=== PATIENT | male | born 1970 | race Caucasian/White ===

== ENCOUNTER 2020-08-02 09:25 | Day surgery (SDC) | payer OTHER ==
[~2020-08-02] VITALS: Ht 177.8 cm; Wt 89.5 kg
--- NOTE | ~2020-08-02 | OP ---
PATIENT NAME: SANJUANA CONTRERAS MEDICAL RECORD: [id number] :68 LOCATION:. ADMISSION DATE: SURGEON: KAYLI BATISTA MD DATE OF OPERATION: 08/02/2020 PREOPERATIVE DIAGNOSES: 1. End-stage renal disease. 2. Dislodged hemodialysis catheter. 3. Hypertension. 4. Diabetes mellitus. 5. Coronary artery disease. 6. Chronic obstructive pulmonary disease. POSTOPERATIVE DIAGNOSES: 1. End-stage renal disease. 2. Dislodged hemodialysis catheter. 3. Hypertension. 4. Diabetes mellitus. 5. Coronary artery disease. 6. Chronic obstructive pulmonary disease. PROCEDURE: 1. A 27 cm left IJ HemoSplit catheter placement. 2. Fluoroscopic interpretation. SURGEON: Kayli Batista MD DESCRIPTION OF PROCEDURE: The patient's left chest was prepped and draped in sterile fashion. Using ultrasound guidance, a needle was used to cannulate the left internal jugular vein. We advanced the guidewire with some tension. 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 We passed an 0.035 Glidewire pass this and into the right ventricle. We then made an incision on the patient's left chest and tunneled a 27 cm HemoSplit catheter between this and the wire exit site. The multiple dilators were placed over the wires followed by the dilator trocar device. The wire and dilator were removed and the catheter tip was advanced through the trocar. The trocar was then removed. The catheter tips were noted to be in good position in the distal superior vena cava. The catheter aspirated nonpulsatile dark blood and flushed easily in all 3 ports. This was sutured into place with 3-0 nylons and the skin incisions were closed with subcutaneous 5-0 Monocryl. COMPLICATIONS: None. CONDITION: Stable. ANESTHESIA: General endotracheal. BLOOD LOSS: 150 mL. TRANSINT:[id number] Voice Confirmation ID: [id number] DOCUMENT ID: [id number] OPERATIVE REPORT [id number] SANJUANA CONTRERAS CHRISTIAN MD CC: [id number] DICTATION DATE: 08/02/[address] CAR MECHANIC: 08/02/20 1408 [facility] [address] [place] [address]
[~2020-08-02 09:25] MED LIST: ALDACTONE50 MG PO; ARTIFICIAL TEARS; CATAPRES0.2 MG PO; HUMULIN R100 UNIT/1 SC; HYDRALAZINE HCL50 MG PO; LASIX80 MG PO; NEURONTIN800 MG PO; NORVASC10 MG PO; NOVOLIN 70/30 110 ML SC; NOVOLIN 70/30 110 ML SQ; OMEPRAZOLE40 MG PO; SODIUM BICARBO650 MG PO; TOPAMAX50 MG PO
[2020-08-02 10:26] VITALS: Ht 177.8 cm; Wt 89.5 kg
[2020-08-02 10:53] LABS: ANION GAP 22.5 mmol/L (8-16); CALCIUM 7.9 mg/dL (8.5-10.1); CARBON DIOXIDE 18.7 mmol/L (21.0-32.0); CREATININE - SERUM 12.3 mg/dL (0.6-1.3); POTASSIUM - SERUM 4.2 mmol/L (3.5-5.1)
[2020-08-02 10:59] LABS: ALBUMIN 3.7 g/dL (3.4-5.0); BILIRUBIN - TOTAL 0.48 mg/dL (0.2-1.3); PROTEIN - SERUM 6.8 g/dL (6.4-8.2)
[2020-08-02 11:03] LABS: BASOPHILS 0.1 % (0-2); HEMATOCRIT 29.7 % (42.0-54.0); HEMOGLOBIN 9.9 g/dL (13.5-17.5); IMMATURE GRANULOCYTES 0.1 % (0-5); LYMPHOCYTE ABS# 0.85 10x3/uL (1.32-3.57); LYMPHOCYTES 11.2 % (15-50); MCH 32.4 pg (26.0-34.0); MCHC 33.3 g/dL (31.0-37.0); MCV 97.1 fL (80.0-100.0); MEAN PLATELET VOLUME 10.4 fL (7.4-10.4); MONOCYTES 18.7 % (2-11); NEUTROPHIL ABS# 5.13 10x3/uL (1.78-5.38); NEUTROPHILS 67.9 % (40-80); PLATELET COUNT 174 10x3/uL (130-400); RBC 3.06 10x6/uL (4.20-6.10); RDW 13.9 % (11.5-14.5); WBC 7.6 10x3/uL (4.8-10.8)
[2020-08-02 11:10] LABS: INR 1.16 (0.85-1.17); PROTIME 13.7 SECONDS (11.6-15.0)
[2020-08-02 11:25] VITALS: BP 177/98
[2020-08-02] MEDS ORDERED: HYDROCODON-ACE1 EAC7 PO (12:24)
--- NOTE | 2020-08-02 13:38 | NUR ---
1255 PT ARRIVED FROM OR WITH 2 LAW ENFORCERS. ROLANDO SPLIT CATH TO LEFT UPPER CHEST. DRESSING CLEAN AND DRY. PT FIGGITY AND EYES CLOSED. IV IN RIGHT HAND WITHOUT SWELLING. 1330 SPOKE WITH LUIS WITH DR MENDOSA AND SHE STATED IT WAS OK FOR PT TO RETURN TO [facility]. 1335 PT DRANK SOME APPLE JUICE AND JELLO
--- NOTE | 2020-08-02 14:24 | NUR ---
1400 IV REMOVED AND PRESSURE HELD TO RIGHT HAND. 1415 BS PER FINGER STICK 142. WAITING FOR TRANSPORTATION TO INTERMEDIATE.
== END 2020-08-02 15:25 ==
LOC: D.ER 09:25 → D.OPS 09:25 → EDSTATUS 10:00 → D.OPS 15:25
PROVIDERS: Family Medicine; ATTEND Internal Medicine
DX: N18.6 End stage renal disease (principal); T82.42XA Displacement of vascular dialysis catheter, initial encounter; I10 Essential (primary) hypertension; E11.9 Type 2 diabetes mellitus without complications; I25.10 Atherosclerotic heart disease of native coronary artery without angina pectoris; J44.9 Chronic obstructive pulmonary disease, unspecified

== ENCOUNTER 2020-08-05 11:42 | Inpatient (IN) | payer MEDICAID ==
[~2020-08-05] VITALS: Ht 177.8 cm; Wt 118.2 kg
[~2020-08-05 11:42] MED LIST changes: +HYDROCODON-ACE1 EAC7 PO
[2020-08-05 11:59] VITALS: BP 168/96
--- NOTE | 2020-08-05 12:10 | NUR ---
DISTRIBUTION COLLECTION OPERATOR IN ROOM
[2020-08-05 12:25] LABS: BASOPHILS 0.2 % (0-2); EOSINOPHILS 1.5 % (0-7); HEMATOCRIT 26.5 % (42.0-54.0); HEMOGLOBIN 8.9 g/dL (13.5-17.5); IMMATURE GRANULOCYTES 0.2 % (0-5); LYMPHOCYTE ABS# 0.73 10x3/uL (1.32-3.57); LYMPHOCYTES 7.3 % (15-50); MCHC 33.6 g/dL (31.0-37.0); MCV 98.1 fL (80.0-100.0); MEAN PLATELET VOLUME 10.5 fL (7.4-10.4); MONOCYTES 14.6 % (2-11); NEUTROPHIL ABS# 7.57 10x3/uL (1.78-5.38); NEUTROPHILS 76.2 % (40-80); PLATELET COUNT 163 10x3/uL (130-400); RDW 13.9 % (11.5-14.5); WBC 9.9 10x3/uL (4.8-10.8)
[2020-08-05 13:00] VITALS: BP 169/99
[2020-08-05 13:00] LABS: ALBUMIN 3.4 g/dL (3.4-5.0); ALKALINE PHOSPHATASE 95 U/L (30-120); ALT (SGPT) 12 U/L (10-68); BILIRUBIN - TOTAL 0.52 mg/dL (0.2-1.3); CALC OSMOLALITY 307 mosm/kg (275-300); CALCIUM 8.4 mg/dL (8.5-10.1); CARBON DIOXIDE 13.3 mmol/L (21.0-32.0); CHLORIDE - SERUM 102 mmol/L (98-107); CKMB 2.7 U/L (0.0-3.6); CREATINE KINASE 310 UL (21-232); CREATININE - SERUM 15.4 mg/dL (0.6-1.3); GLUCOSE 98 mg/dL (74-106); POTASSIUM - SERUM 5.6 mmol/L (3.5-5.1); PRO BNP 17759 pg/mL (0-125); PROTEIN - SERUM 6.9 g/dL (6.4-8.2); SODIUM 139 mmol/L (136-145); TROPONIN-I 0.054 ng/mL (0.000-0.060); UREA NITROGEN 96 mg/dL (7-18); eGFR NON AFRICAN AMERICAN 4 mL/min (90-120)
[2020-08-05 13:16] LABS: APTT 36.4 SECONDS (22.8-39.4)
[2020-08-05 13:17] LABS: INR 1.22 (0.85-1.17); PROTIME 14.3 SECONDS (11.6-15.0)
--- NOTE | 2020-08-05 13:48 | NUR ---
LAB CALLED WITH CRITICAL D-DIMER 7.78
--- NOTE | 2020-08-05 14:31 | NUR ---
BLOOD GLUCOSE 88 AT THIS TIME, PRIMARY RN INFORMED
[2020-08-05 14:58] VITALS: BP 180/97
--- NOTE | 2020-08-05 15:04 | NUR ---
CALCIUM GLUC INFUSION COMPLETED AT 1440. PATIENT IS ALERT TO VERBAL STIMULI, SLEEPING EASY TO AROUSE.
--- NOTE | 2020-08-05 15:25 | NUR ---
VS: 167/108 HR 86, RR 18, O2 98% ON 2L, TEMP 98.1
--- NOTE | 2020-08-05 15:25 | NUR ---
PT IN ROOM, TRANSFERRED TO BED. KITTY AT BEDSIDE. PT IS LETHARGIC AND CONFUSED. THIS IS ABNORMAL. RESTING COMFORTABLY. DENIES FURTHER NEEDS. AIDE IN ROOM OBTAINING VITALS.
--- NOTE | 2020-08-05 15:58 | NUR ---
DOWN TO DIALYSIS VIA WHEELCHAIR. GUARD WITH PATIENT.
--- NOTE | 2020-08-05 17:19 | NUR ---
IN DIALYSIS. BLOOD SUGAR 99, NO INSULIN PER SLIDING SCALE.
[2020-08-05 17:27] VITALS: Ht 177.8 cm; Wt 118.2 kg
--- NOTE | 2020-08-05 18:31 | NUR ---
AAOX4 UPON ENTERING DIALYSIS. ADMINISTERED MEDICATION, NO DIFFICULTIES. GUARD AT CHAIR SIDE. DENIES ANY NEEDS AT THIS TIME. WILL CONTINUE POC.
--- NOTE | 2020-08-05 19:27 | NUR ---
RECEIVED PT TO FLOOR FROM DIALYSIS
[2020-08-05 20:00] VITALS: BP 162/93
[2020-08-06] VITALS: BP 155/86
[2020-08-06 04:00] VITALS: BP 163/105
--- NOTE | 2020-08-06 04:22 | NUR ---
I have reviewed this patient and I concur with the Shift Assessment completed by the Licensed Practical Nurse today this shift.
[2020-08-06 06:04] LABS: BASOPHILS 0.2 % (0-2); EOSINOPHILS 2.8 % (0-7); HEMATOCRIT 23.7 % (42.0-54.0); HEMOGLOBIN 7.9 g/dL (13.5-17.5); IMMATURE GRANULOCYTES 0.3 % (0-5); LYMPHOCYTE ABS# 0.93 10x3/uL (1.32-3.57); LYMPHOCYTES 15.4 % (15-50); MCH 32.1 pg (26.0-34.0); MCHC 33.3 g/dL (31.0-37.0); MCV 96.3 fL (80.0-100.0); MEAN PLATELET VOLUME 10.2 fL (7.4-10.4); MONOCYTES 18.3 % (2-11); NEUTROPHIL ABS# 3.81 10x3/uL (1.78-5.38); PLATELET COUNT 161 10x3/uL (130-400); RBC 2.46 10x6/uL (4.20-6.10); RDW 13.6 % (11.5-14.5)
[2020-08-06 06:18] LABS: WBC 6.1 10x3/uL (4.8-10.8)
[2020-08-06 06:19] LABS: ALBUMIN 3.1 g/dL (3.4-5.0); BILIRUBIN - TOTAL 0.63 mg/dL (0.2-1.3); CALCIUM 7.8 mg/dL (8.5-10.1); PROTEIN - SERUM 6.3 g/dL (6.4-8.2)
[2020-08-06 06:20] LABS: ANION GAP 17.9 mmol/L (8-16); CARBON DIOXIDE 25.5 mmol/L (21.0-32.0); CREATININE - SERUM 8.8 mg/dL (0.6-1.3); POTASSIUM - SERUM 3.4 mmol/L (3.5-5.1)
--- NOTE | 2020-08-06 08:12 | NUR ---
AWAKE AND ALERT. ORIENTED X3. C/O PAIN TO NECK BUT STATED THIS IS NOT NEW, 3 SURGERIES ON NECK THIS MONTH. WILL MONITOR. LUNGS ARE CLEAR BILATERALLY, NO COUGH NOTED. SKIN IS INTACT WITHOUT REDNESS. FISTULA TO LEFT UPPER ARE WITH GOOD BRUIT AND THRILL. SL TO RIGHT HAND AND IV TO RIGHT FOREARM ARE PATENT WITHOUT REDNESS AT INSERTION SITE. DENIES NEEDS.
--- NOTE | 2020-08-06 12:00 | NUR ---
FSBS 136. NO COVERAGE NEEDED.
--- NOTE | 2020-08-06 14:05 | MORECARE ---
CASE MANAGEMENT DISCHARGE SUMMARY PATIENT: SANJUANA CONTRERAS UNIT: [id number] ADM DATE: 08/05/20 AGE: 50 : 69 SEX: M ROOM/BED: D.2239 AUTHOR: DALLAS,DOC PHYSICIAN: REFERRING PHYSICIAN: ORLY OAKLEY DO DATE OF SERVICE: 08/06/20 Case Management Discharge Planning Summary COMMENTS ENTERED DATE: 08/06/20 13:55 CT COMMENT TYPE: Discharge Planning REVIEWER: Sunitha Porras PATIENT IS AN ADC PATIENT, WILL RETURN TO [facility] AFTER DIALYSIS, THE GUARDS WILL SET UP TRANSPORTATION. CM TO ASSIST NEEDED DCP REVIEW SUMMARY ANTICIPATED D/C DATE: EXPECTED LOS : CASE STATUS: DCP Initiated INITIAL REVIEW: 08/05/2020 INITIAL REVIEWER: Sunitha Porras FINAL DISCHARGE DISPOSITION: : FINAL REVIEWER: FINAL REVIEW DATE: DCP Focus Questions & Answers QUESTION: ANSWER : PATIENT: SANJUANA CONTRERAS ENCOUNTER: [id number] MEDICAL RECORD#: [id number] ADMISSION DATE: 08/05/2020 DISCHARGE DATE: ATTENDING MD: : AGE: 50 MARITAL STATUS: S DC PLAN ID: [id number] FACILITY: [facility] PRINTED ON: 08/06/20 14:05 CT All edits/amendments must be made on the electronic document DICTATION DATE: 08/06/201404 BUGGY DRIVER: ISMAEL 08/06/201404 RPT#: [id number] DC DATE: STATUS: ADM IN [facility] [address] [place] [address] END OF REPORT
--- NOTE | 2020-08-06 14:15 | NUR ---
OFF UNIT VIA WC FOR DIALYSIS.
--- NOTE | 2020-08-06 16:30 | NUR ---
RETURNED FROM DIALYSIS. A/O X 3. DENIES NEEDS.
--- NOTE | 2020-08-06 17:10 | NUR ---
unable to reach long term MD at #[phone] after several attempts. no dial tone or ringing noted. verified number with long term and still unable to reach MD. Dr Keenan notified and instructed to hold dc till am.
--- NOTE | 2020-08-06 17:30 | NUR ---
UNABLE TO REACH [facility] MD GUIDRY. WILL DISCHARGE BACK IN AM.
--- NOTE | 2020-08-06 19:37 | NUR ---
ATE A FEW BITES OF SUPPER. DENIES NEEDS. NO CHANGES NOTED.
[2020-08-06 20:00] VITALS: BP 159/90
[2020-08-07 04:00] VITALS: BP 157/92
--- NOTE | 2020-08-07 05:12 | NUR ---
I have reviewed this patient and I concur with the Shift Assessment completed by the Licensed Practical Nurse today this shift.
[2020-08-07 06:11] LABS: HEMATOCRIT 24.4 % (42.0-54.0); HEMOGLOBIN 8.6 g/dL (13.5-17.5); MCH 33.9 pg (26.0-34.0); MCV 96.9 fL (80.0-100.0); MEAN PLATELET VOLUME 8.5 fL (7.4-10.4); PLATELET COUNT 153 10x3/uL (130-400); RBC 2.52 10x6/uL (4.20-6.10); RDW 14.1 % (11.5-14.5); WBC 5.7 10x3/uL (4.8-10.8)
[2020-08-07 06:30] LABS: ANION GAP 16.4 mmol/L (8-16); CALCIUM 7.9 mg/dL (8.5-10.1); CARBON DIOXIDE 26.8 mmol/L (21.0-32.0); CREATININE - SERUM 7.9 mg/dL (0.6-1.3); POTASSIUM - SERUM 3.2 mmol/L (3.5-5.1)
[2020-08-07 06:37] LABS: ALBUMIN 3.1 g/dL (3.4-5.0); BILIRUBIN - TOTAL 0.42 mg/dL (0.2-1.3); PROTEIN - SERUM 6.4 g/dL (6.4-8.2)
[2020-08-07 10:12] VITALS: BP 164/108
--- NOTE | 2020-08-07 12:11 | MORECARE ---
CASE MANAGEMENT DISCHARGE SUMMARY PATIENT: SANJUANA CONTRERAS UNIT: [id number] ADM DATE: 08/05/20 AGE: 50 : 68 SEX: M ROOM/BED: D.2239 AUTHOR: DALLAS,DOC PHYSICIAN: REFERRING PHYSICIAN: ORLY OAKLEY DO DATE OF SERVICE: 08/07/20 Case Management Discharge Planning Summary COMMENTS ENTERED DATE: 08/06/20 13:55 CT COMMENT TYPE: Discharge Planning REVIEWER: Sunitha Porras PATIENT IS AN ADC PATIENT, WILL RETURN TO ALF AFTER DIALYSIS, THE GUARDS WILL SET UP TRANSPORTATION. CM TO ASSIST NEEDED DCP REVIEW SUMMARY ANTICIPATED D/C DATE: EXPECTED LOS : CASE STATUS: DCP Initiated INITIAL REVIEW: 08/05/2020 INITIAL REVIEWER: Sunitha Porras FINAL DISCHARGE DISPOSITION: : FINAL REVIEWER: FINAL REVIEW DATE: DCP Focus Questions & Answers QUESTION: ANSWER : PATIENT: SANJUANA CONTRERAS ENCOUNTER: [id number] MEDICAL RECORD#: [id number] ADMISSION DATE: 08/05/2020 DISCHARGE DATE: ATTENDING MD: : AGE: 50 MARITAL STATUS: S DC PLAN ID: [id number] FACILITY: [facility] PRINTED ON: 08/07/20 12:10 CT All edits/amendments must be made on the electronic document DICTATION DATE: 08/07/201209 COLLECTIONS ATTORNEY: ISMAEL 08/07/201209 RPT#: [id number] DC DATE: STATUS: ADM IN [facility] [address] [place] [address] END OF REPORT
--- NOTE | 2020-08-07 12:17 | NUR ---
REPORT CALLED TO ARABELLA AT RETIREMENT. IVS X 2 REMOVED. AWAITING TRANSPORT.
[2020-08-07 12:29] VITALS: BP 174/97
[2020-08-07 13:48] LABS: EOSINOPHILS 1 % (0-7); LYMPHOCYTES 20 % (15-50); MONOCYTES 11 % (2-11); NEUTROPHILS 68 % (40-80); PLATELET ESTIMATE NORMAL
--- NOTE | 2020-08-07 14:41 | MORECARE ---
CASE MANAGEMENT DISCHARGE SUMMARY PATIENT: SANJUANA CONTRERAS UNIT: [id number] ADM DATE: 08/05/20 AGE: 50 : 68 SEX: M ROOM/BED: D.2239 AUTHOR: DALLAS,DOC PHYSICIAN: REFERRING PHYSICIAN: ORLY OAKLEY DO DATE OF SERVICE: 08/07/20 Case Management Discharge Planning Summary COMMENTS ENTERED DATE: 08/06/20 13:55 CT COMMENT TYPE: Discharge Planning REVIEWER: Sunitha Porras PATIENT IS AN ADC PATIENT, WILL RETURN TO LONG-[facility]M AFTER DIALYSIS, THE [facility]AR[facility] WILL SET UP TRANSPORTATION. CM TO ASSIST NEEDED DCP REVIEW SUMMARY ANTICIPATED D/C DATE: EXPECTED LOS : CASE STATUS: DCP Initiated INITIAL REVIEW: 08/05/2020 INITIAL REVIEWER: Sunitha Porras FINAL DISCHARGE DISPOSITION: : FINAL REVIEWER: FINAL REVIEW DATE: DCP Focus Questions & Answers QUESTION: ANSWER : PATIENT: SANJUANA CONTRERAS ENCOUNTER: [id number] MEDICAL RECORD#: [id number] ADMISSION DATE: 08/05/2020 DISCHARGE DATE: 08/07/2020 ATTENDING MD: GERBER: AGE: 50 MARITAL STATUS: S DC PLAN ID: [id number] FACILITY: [facility] PRINTED ON: 08/07/20 14:41 CT All edits/amendments must be made on the electronic document DICTATION DATE: 08/07/201440 SERVICES TECH: ISMAEL 08/07/201440 RPT#: [id number] DC DATE:08/07/20 STATUS: DIS IN [facility] [address] [place] [address] END OF REPORT
--- NOTE | 2020-08-08 14:30 | MORECARE ---
CASE MANAGEMENT DISCHARGE SUMMARY PATIENT: SANJUANA CONTRERAS UNIT: [id number] ADM DATE: 08/05/20 AGE: 50 : 68 SEX: M ROOM/BED: D.2239 AUTHOR: DALLAS,DOC PHYSICIAN: REFERRING PHYSICIAN: ORLY OAKLEY DO DATE OF SERVICE: 08/08/20 Case Management Discharge Planning Summary COMMENTS ENTERED DATE: 08/06/20 13:55 CT COMMENT TYPE: Discharge Planning REVIEWER: Sunitha Porras PATIENT IS AN ADC PATIENT, WILL RETURN TO [facility] AFTER DIALYSIS, THE GUARDS WILL SET UP TRANSPORTATION. CM TO ASSIST NEEDED DCP REVIEW SUMMARY ANTICIPATED D/C DATE: EXPECTED LOS : CASE STATUS: DCP Initiated INITIAL REVIEW: 08/05/2020 INITIAL REVIEWER: Sunitha Porras FINAL DISCHARGE DISPOSITION: : FINAL REVIEWER: FINAL REVIEW DATE: DCP Focus Questions & Answers QUESTION: ANSWER : PATIENT: SANJUANA CONTRERAS ENCOUNTER: [id number] MEDICAL RECORD#: [id number] ADMISSION DATE: 08/05/2020 DISCHARGE DATE: 08/07/2020 ATTENDING MD: GERBER: AGE: 50 MARITAL STATUS: S DC PLAN ID: [id number] FACILITY: [facility] PRINTED ON: 08/08/20 14:29 CT All edits/amendments must be made on the electronic document DICTATION DATE: 08/08/201428 CAR UNLOADER: ISMAEL 08/08/201428 RPT#: [id number] DC DATE:08/07/20 STATUS: DIS IN [facility] [address] [place] [address] END OF REPORT
== END 2020-08-07 14:36 | DRG 682 ==
LOC: D.ER 11:42 → D.MS 14:13
PROVIDERS: Family Medicine; ADMIT Internal Medicine; ATTEND Internal Medicine
DX: I12.0 Hypertensive chronic kidney disease with stage 5 chronic kidney disease or end stage renal disease (principal); N18.6 End stage renal disease; E11.22 Type 2 diabetes mellitus with diabetic chronic kidney disease; Z99.2 Dependence on renal dialysis; D63.1 Anemia in chronic kidney disease